=== PATIENT | female | born 1955 | race Caucasian/White ===

== ENCOUNTER 2018-12-10 04:47 | Inpatient (IN) | payer OTHER ==
[2018-12-10] VITALS (17 sets, daily range): BP systolic 105–130; BP diastolic 49–75
[~2018-12-10] VITALS: Ht 160 cm; Wt 68.9 kg
[2018-12-10] MEDS ORDERED: celeBREX 200mg Cap **SURGERY PATIENTS ONLY ORAL ONE (06:00)
[2018-12-10] MEDS ORDERED: Clindamycin 600mg/D5W 50ml IV ONE (06:00)
[2018-12-10] MEDS ORDERED: VYVANSE30 MG ORAL (06:04)
[2018-12-10] MEDS ORDERED: CYMBALTA60 MG ORAL (06:04)
[2018-12-10] MEDS ORDERED: HYDROCHLOROTHIA25 MG ORAL (06:04)
[2018-12-10] MEDS ORDERED: CARTIA XT240 MG ORAL (06:06)
[2018-12-10] MEDS ORDERED: Midazolam 2mg/2ml Inj ONE ×2 (06:39→07:13)
[2018-12-10] MEDS ORDERED: fentaNYL 100 mcg/2 mL IV ONE (06:39)
[2018-12-10] MEDS ORDERED: Tranexamic Acid 1,000 MG in NS 55 ML IV ONE ×2 (06:45→08:30)
[2018-12-10] MEDS ORDERED: Kenalog-40 1ml Vial ONE (06:45)
[2018-12-10] MEDS ORDERED: Bacitracin 50000 Units Vial ONE (06:46)
[2018-12-10] MEDS ORDERED: Ketorolac 30mg Inj ONE (06:46)
[2018-12-10] MEDS ORDERED: Bupivacaine 0.25% Inj 30ml INJ ONE (06:46)
[2018-12-10] MEDS ORDERED: NeoSporin Gu Irrig 1ml Amp IRRIG ONE (06:46)
[2018-12-10] MEDS ORDERED: Clindamycin 600mg 0 ML IV ONE (06:47)
[2018-12-10] MEDS ORDERED: Sterile Water Irrig 1000ml IRRIG ONE (07:00)
[2018-12-10] MEDS ORDERED: NS Irrig 1000ml ONE (07:00)
[2018-12-10] MEDS ORDERED: LR 1000ml ONE (07:00)
[2018-12-10] MEDS ORDERED: Morphine Sulfate PF 10 ML ONE (07:04)
--- NOTE | 2018-12-10 07:06 | Operative Note - PDOC ---
Operative Note Operative Note Pre-op Diagnosis: right knee posttraumactic arthritis Procedure: see op report Post-op Diagnosis: same as pre-op plus Operative Findings: consistent w/pre-op dx studies Anesthesia: regional Specimen: none Complications: none Condition: stable Estimated Blood Loss: none Implant(s) used?: Yes Albino Winkler MD Dec 10, 2018 07:06
--- NOTE | 2018-12-10 07:06 | Pre-Procedure Note/Attestation ---
Pre-Procedure Note/Attestation Complete Prior to Procedure Planned Procedure: right Procedure Narrative: tka Indications for Procedure Pre-Operative Diagnosis: right knee posttraumactic arthritis Attestation I attest that I discussed the nature of the procedure; its benefits; risks and complications; and alternatives (and the risks and benefits of such alternatives ), prior to the procedure, with the patient (or the patient's legal outside dealer sales representative). I attest that, if there was a reasonable possibility of needing a blood transfusion, the patient (or the patient's legal outside dealer sales representative) was given the [facility] standardized written summary, pursuant to the Zach Dillon Blood Safety Act ([place] Health and Safety Code # 1645, as amended). I attest that I re-evaluated the patient just prior to the surgery and that there has been no change in the patient's H&P, except as documented below: Albino Winkler MD Dec 10, 2018 07:06
[2018-12-10] MEDS ORDERED: Milk of Magnesia 30ml Ud ORAL PRN (07:15)
[2018-12-10] MEDS ORDERED: Acetaminophen (Non formulary) 100 ML IV ONE (07:15)
[2018-12-10] MEDS ORDERED: Morphine Sulfate 2mg/ml Inj(IV/IM USE ONLY) IVP PRN (07:15)
[2018-12-10] MEDS ORDERED: Vancomycin 1gm vial IVPB ONE (07:59)
[2018-12-10] MEDS ORDERED: Duramorph PF 5mg/10ml amp ONE (08:18)
[2018-12-10] MEDS ORDERED: Duramorph PF 5mg/10ml amp IV ONE (08:20)
--- NOTE | 2018-12-10 08:21 | Anethesia Preoperative Eval ---
Anesthesia Pre-op PMH/ROS General Date of Evaluation: Dec 10, 2018 Time of Evaluation: 07:00 Anesthesiologist: Mariano ASA Score: ASA 2 Mallampati Score Class I : Soft palate, uvula, fauces, pillars visible Class II: Soft palate, uvula, fauces visible Class III: Soft palate, base of uvula visible Class IV: Only hard plate visible Mallampati Classification: Class II Surgeon: brenda Diagnosis: OA Surgical Procedure: Right Knee arthroplasty Anesthesia History: none Family History: no anesthesia problems Allergies: Coded Allergies: ACETAMINOPHEN (Verified Allergy, Severe, HEADACHE, NAUSEA, 12/09/18) HYDROCODONE (Verified Allergy, Severe, HEADACHE, NAUSEA, 12/09/18) PENICILLINS (Verified Allergy, Severe, HIVES, 12/09/18) MORPHINE (Verified Adverse Reaction, Severe, 12/09/18) "I GET CRAZY" Patient NPO?: Yes NPO Date: Dec 09, 2018 NPO Time: 2100 Past Medical History Cardiovascular: Reports: HTN Pulmonary: Denies: asthma, COPD, LCAIRE, other Gastrointestinal/Genitourinary: Denies: GERD, CRI, ESRD, other Neurologic/Psychiatric: Denies: dementia, CVA, depression/anxiety, TIA, other Endocrine: Denies: DM, hypothyroidism, steroids, other HEENT: Denies: cataract (L), cataract (R), glaucoma, RENO-SPARKS (L), RENO-SPARKS (R), other Hematology/Immune: Denies: anemia, DVT, bleeding disorder, other Musculoskeletal/Integumentary: Reports: OA PSxH Narrative: Rhinoplasty Anesthesia Pre-op Phys. Exam Physician Exam Last Vital Signs Date Time Temp Pulse Resp B/P (MAP) Pulse Ox O2 Delivery O2 Flow Rate FiO2 12/10/18 06:05 98.0 74 20 120/74 (89) 97 12/10/18 05:47 Room Air Constitutional: NAD Neurologic: CN 2-12 intact Cardiovascular: RRR Respiratory: CTA Gastrointestinal: S/NT/ND Airway Exam Mallampati Classification 2 Mallampati Score: Class II MO: full ROM: full Dentures: no upper, no lower Anesthesia Pre-op A/P Labs See HP Studies Pre-op Studies: EKG - SR Risk Assessment & Plan Plan: SAB/Adductor/LMA Pre-Antibiotics Drug: Vanc Given Within 1 Hr of Incision: Yes Time Given: :40 Keyla Laws CRNA Dec 10, 2018 08:21
[2018-12-10] MEDS ORDERED: Metoclopramide 10mg/2ml Inj IVP PRN (08:30)
[2018-12-10] MEDS ORDERED: fentaNYL 100 mcg/2 mL IV PRN (08:30)
[2018-12-10] MEDS ORDERED: DiphenhydrAMINE 50mg/ml Inj IVP PRN (08:30)
[2018-12-10] MEDS ORDERED: Ropivacaine 5mg/ml Vial 30ml INJ ONE (08:56)
[2018-12-10] MEDS ORDERED: Metoclopramide 10mg/2ml Inj ONE (08:56)
[2018-12-10] MEDS ORDERED: Lidocaine 1% MPF 10mg/ml 5ml ONE (08:56)
[2018-12-10] MEDS ORDERED: Propofol 200mg/20ml IV ONE (08:56)
--- NOTE | 2018-12-10 09:58 | Immediate Post-Op Evaluation ---
Immediate Post-Op Evalulation Immediate Post-Op Evalulation Procedure: right total knee arthroplasty Date of Evaluation: Dec 10, 2018 Time of Evaluation: 09:55 IV Fluids: 1500 Blood Products: 0 Estimated Blood Loss: 15 Blood Pressure Systolic: 111 Blood Pressure Diastolic: 54 Pulse Rate: 88 Respiratory Rate: 14 O2 Sat by Pulse Oximetry: 99 Temperature (Fahrenheit): 97.0 Nausea: No Vomiting: No Complications none Patient Status: awake, reacts, patent Hydration Status: adequate Drug: vanc Given Within 1 Hr of Incision: Yes Time Given: 07:40 Keyla Laws CRNA Dec 10, 2018 09:58
--- NOTE | 2018-12-10 11:20 | Diagnostic Imaging Report ---
Indication: Knee pain. Postop Technique: 2 portable views of the right knee Comparison: None Findings: Patient is status post recent total knee arthroplasty. Alignment appears anatomic. No evidence of fracture. No hardware-related complication identified. Foci of gas within the joint space and subcutaneous tissues consistent with postoperative acquisition of the radiograph. Impression: Expected appearance of the knee status post recent total knee arthroplasty. No radiographic evidence of hardware-related complication.
[2018-12-10] MEDS: D5 1/2NS w/KCl 20mEq 1,000 ML IV SCH (13:39)
[2018-12-10] MEDS ORDERED: ceFAZolin sod 2 GM in D5W 110 ML IV SCH (14:00)
[2018-12-10] MEDS: Aspirin Baby 81mg ORAL SCH (18:35)
[2018-12-10] MEDS: Acetaminophen 500mg (ES) tab ORAL SCH (18:36)
[2018-12-10] MEDS: Docusate 100mg cap ORAL SCH (18:36)
[2018-12-10] MEDS: Vancomycin 1 GM in D5W 275 ML IVPB SCH (20:29)
[2018-12-10] MEDS: DULoxetine 30mg cap ORAL SCH (20:36)
[2018-12-10] MEDS: oxyCONTIN 20mg tab ORAL SCH (20:37)
[2018-12-11] VITALS (7 sets, daily range): BP systolic 93–140; BP diastolic 57–70
[2018-12-11] MEDS: Morphine Sulfate 2mg/ml Inj(IV/IM USE ONLY) IVP PRN ×4 (00:56→21:28)
--- NOTE | 2018-12-11 02:00 | Consultation ---
DATE OF CONSULTATION: 12/10/2018 HISTORY OF PRESENT ILLNESS: The patient is an unfortunate female who is scheduled to undergo total knee arthroplasty and was hospitalized. This is a postoperative consult. PAST MEDICAL HISTORY: 1. Attention-deficit hyperactivity disorder. 2. Ulcerative colitis. 3. Hypertension. 4. Fibromyalgia. PAST SURGICAL HISTORY: 1. Knee arthroscopy. 2. Rhinoplasty. 3. Ear surgery. At postop, she has some knee pain. She denies nausea. She denies any vomiting. Denies palpitations. Denies headache. Denies dysuria or frequency. PHYSICAL EXAMINATION: VITAL SIGNS: Vital signs that were obtained on the patient, she is afebrile . HEENT: Normocephalic and atraumatic. Extraocular muscles intact. Anicteric sclerae. NECK: No JVD. No carotid bruits. HEART: S1 and S2. LUNGS: Clear. ABDOMEN: Soft. EXTREMITIES: No clubbing or cyanosis. She is able to bend the knee. Wound is dressed. . Status post right knee surgery. Preoperatively, antibiotic prophylaxis was given and postoperatively DVT prophylaxis at the recommendation of Dr. Winkler. Monitor the patient closely. CBC will be ordered in the morning. Andre Contreras M.D. DR: Jimbo JOB#: [id number] CC:
[2018-12-11] MEDS: D5 1/2NS w/KCl 20mEq 1,000 ML IV SCH ×2 (02:20→18:54)
--- NOTE | 2018-12-11 04:15 | Operative Note - Dictated ---
DATE OF OPERATION: 12/10/2018 PREOPERATIVE DIAGNOSIS: Right knee posttraumatic arthrosis. POSTOPERATIVE DIAGNOSIS: Right knee posttraumatic arthrosis. PROCEDURE: Right total knee arthroplasty. SURGEON: Albino Winkler M.D. ANESTHESIA: Spinal with femoral adductor block. INDICATION FOR PROCEDURE: The patient is a pleasant female who has had worsening knee pain after an accident. She subsequently elected to undergo right total knee arthroplasty. The risks, limitations, expectations, and complications of the procedure discussed in detail. All questions were addressed. Intraoperative Finding:Full thickness chondral damage lateral and medial compartment with chondral flaps. Moderate synovitis suprapatella pouch. DESCRIPTION OF PROCEDURE: After informed consent was obtained, the patient was brought to the operating room. The patient was placed under spinal anesthesia. A Benedict catheter was placed. Vancomycin was administered. Time-out was performed. Right leg was prepped and draped in sterile manner. Anterior skin incision was then made subvastus arthrotomy was performed. Distal femur well visualized. At this point, distal femoral cutting block was then placed. Distal femur was resected. A posterior to anterior sizing guide was performed measured to 5. Size 5 cutting block was placed. It seemed a little bit too wide. Therefore, a size 4 implant was used. The holes were anteriorized by 2 mm and a 4 cutting block was placed. Here it seemed like was going to notch the anterior cortex and size 5 was selected. This was placed. Although it was little wide, it seemed like the posterior to anterior diameter was appropriate. Therefore, the anterior and posterior chamfer cuts were then made. The proximal tibia was well visualized. Proximal tibia was resected. Medial and lateral meniscus removed. Trial components with a size 5 femur, 9 mm insert, 5 mm tibial tray was selected and placed. Knee came out to full extension, good stability to full extension, 10 degrees flexion, and 90 degree flexion. Good tracking of the patella. At this point, the patella was everted, measured 24 mm. A freehand resection was performed. A 31 mm patellar component was selected and placed and we capped 24 mm in diameter. At this point, the cement was prepared. Final implants were impacted into place. Excess cement was removed. The arthrotomy site closed with #1 Vicryl suture, 2-0 Vicryl suture, and 3-0 Monocryl sutures and Steri-Strips. The patient was awakened and taken to recovery room with stable signs. ESTIMATED BLOOD LOSS: None. COMPLICATIONS: None. SPECIMENS: None. IMPLANTS: Include size 5 femoral component, size 5 tibial base plate, 9 mm tibial insert, and a 31 mm patellar component. Albino Winkler M.D. DR: Yuni JOB#: [id number] CC: SOL
[2018-12-11 06:42] LABS: HEMOGLOBIN 10.1 G/DL (12.0-16.0); MEAN CORPUSCULAR VOLUME 94 FL (80-99); PLATELET COUNT 265 K/UL (150-450); RED CELL DISTRIBUTION WIDTH 10.9 % (11.6-14.8); WHITE BLOOD COUNT 17.1 K/UL (4.8-10.8)
[2018-12-11 07:46] LABS: ANION GAP 7 mmol/L (5-15); BLOOD UREA NITROGEN 15 mg/dL (7-18); CARBON DIOXIDE 28 MMOL/L (21-32); CHLORIDE 102 MMOL/L (98-107); CREATININE 0.7 MG/DL (0.55-1.30); POTASSIUM 3.6 MMOL/L (3.5-5.1); SODIUM 137 MMOL/L (136-145)
[2018-12-11] MEDS: dilTIAZem HCl CD 240mg cap ORAL SCH (08:50)
[2018-12-11] MEDS: Vancomycin 1 GM in D5W 275 ML IVPB SCH (08:50)
[2018-12-11] MEDS: Aspirin Baby 81mg ORAL SCH ×2 (08:50→18:34)
[2018-12-11] MEDS: Docusate 100mg cap ORAL SCH ×3 (08:51→18:34)
[2018-12-11] MEDS: celeBREX 200mg Cap **SURGERY PATIENTS ONLY ORAL SCH (08:51)
[2018-12-11] MEDS: Acetaminophen 500mg (ES) tab ORAL SCH ×3 (08:52→18:00)
[2018-12-11] MEDS: oxyCONTIN 20mg tab ORAL SCH ×2 (09:00→20:21)
--- NOTE | 2018-12-11 09:52 | 48 Hour Post Anesthesia Eval ---
Post Anesthesia Evaluation Procedure: right total knee arthroplasty Date of Evaluation: Dec 11, 2018 Time of Evaluation: 09:52 Nausea: No Vomiting: No Manfred Montejo MD Dec 11, 2018 09:52
--- NOTE | 2018-12-11 12:17 | General Progress Note ---
Assessment/Plan Status Narrative S/P KNEE SURGERY PT OT DVT PROPHYALXIS DOING WELL HISTORYO F ADD HOLD THE VYVLEONELE. Subjective Date patient seen: Dec 11, 2018 Allergies: Coded Allergies: ACETAMINOPHEN (Verified Allergy, Severe, HEADACHE, NAUSEA, 12/09/18) HYDROCODONE (Verified Allergy, Severe, HEADACHE, NAUSEA, 12/09/18) PENICILLINS (Verified Allergy, Severe, HIVES, 12/09/18) MORPHINE (Verified Adverse Reaction, Severe, 12/09/18) "I GET CRAZY" Subjective HAS PAIN Objective Last 24 Hour Vital Signs Date Time Temp Pulse Resp B/P (MAP) Pulse Ox O2 Delivery O2 Flow Rate FiO2 12/11/18 09:29 Room Air 12/11/18 08:50 82 127/70 12/11/18 08:46 98.9 82 18 127/70 (89) 96 12/11/18 04:00 97.8 80 18 93/58 (70) 96 12/11/18 00:00 97.6 80 18 114/65 (81) 94 12/10/18 21:00 Room Air 12/10/18 20:00 98.0 82 18 130/74 (92) 96 12/10/18 17:00 Room Air 12/10/18 16:00 97.3 74 18 116/70 (85) 97 12/10/18 14:50 97.7 75 20 108/63 (78) 94 12/10/18 13:50 97.6 75 18 126/75 (92) 95 12/10/18 12:50 97.7 72 20 108/70 (83) 100 12/10/18 12:20 97.0 72 18 106/70 (82) 98 Intake and Output 12/10/18 12/11/18 19:00 07:00 Intake Total 2725 ml 825 ml Output Total 515 ml Balance 2210 ml 825 ml Intake Oral 400 ml IV Total 2325 ml 825 ml Output Urine Total 500 ml Estimated Blood Loss 15 ml Laboratory Tests 12/11/18 05:15: White Blood Count 17.1H, Red Blood Count 3.20L, Hemoglobin 10.1L, Hematocrit 30.0L, Mean Corpuscular Volume 94, Mean Corpuscular Hemoglobin 31.6H, Mean Corpuscular Hemoglobin Concent 33.7, Red Cell Distribution Width 10.9L, Platelet Count 265, Mean Platelet Volume 6.1L, Neutrophils (%) (Auto) , Lymphocytes (%) (Auto) , Monocytes (%) (Auto) , Eosinophils (%) (Auto) , Basophils (%) (Auto) , Differential Total Cells Counted 100, Neutrophils % ( Manual) 83H, Lymphocytes % (Manual) 9L, Monocytes % (Manual) 8, Eosinophils % ( Manual) 0, Basophils % (Manual) 0, Band Neutrophils 0, Platelet Estimate Adequate, Platelet Morphology Normal, Red Blood Cell Morphology Normal, Sodium Level 137, Potassium Level 3.6, Chloride Level 102, Carbon Dioxide Level 28, Anion Gap 7, Blood Urea Nitrogen 15, Creatinine 0.7, Estimat Glomerular Filtration Rate > 60, Glucose Level 134H, Calcium Level 9.0 Height (Feet): 5 Height (Inches): 3.00 Weight (Pounds): 152 General Appearance: WD/WN Neck: non-tender Cardiovascular: normal rate, no JVD Respiratory/Chest: lungs clear Abdomen: soft Andre Contreras MD Dec 11, 2018 12:17
[2018-12-11] MEDS ORDERED: Tubing IV Secondary IV ONE (16:43)
[2018-12-11] MEDS: DULoxetine 30mg cap ORAL SCH (20:20)
[2018-12-11] MEDS: oxyCODONE 5mg IR tab ORAL PRN (23:30)
[2018-12-12] MEDS: Morphine Sulfate 2mg/ml Inj(IV/IM USE ONLY) IVP PRN (01:33)
[2018-12-12 03:55] VITALS: BP 142/81
[2018-12-12] MEDS: D5 1/2NS w/KCl 20mEq 1,000 ML IV SCH (05:00)
[2018-12-12 07:41] LABS: BASOPHILS % (AUTO) 0.2 % (0.0-2.0); HEMATOCRIT 27.9 % (37.0-47.0); HEMOGLOBIN 9.5 G/DL (12.0-16.0); LYMPHOCYTES % (AUTO) 9.2 % (20.0-45.0); MEAN CORPUSCULAR VOLUME 94 FL (80-99); MONOCYTES % (AUTO) 8.7 % (1.0-10.0); NEUTROPHILS % (AUTO) 81.8 % (45.0-75.0); PLATELET COUNT 239 K/UL (150-450); RED BLOOD COUNT 2.96 M/UL (4.20-5.40); RED CELL DISTRIBUTION WIDTH 11.1 % (11.6-14.8); WHITE BLOOD COUNT 13.9 K/UL (4.8-10.8)
[2018-12-12 08:14] VITALS: BP 123/76
[2018-12-12] MEDS: Aspirin Baby 81mg ORAL SCH ×2 (08:16→18:08)
[2018-12-12] MEDS: celeBREX 200mg Cap **SURGERY PATIENTS ONLY ORAL SCH (08:17)
[2018-12-12] MEDS: Docusate 100mg cap ORAL SCH ×3 (08:17→18:08)
[2018-12-12] MEDS: dilTIAZem HCl CD 240mg cap ORAL SCH (08:17)
[2018-12-12] MEDS: Acetaminophen 500mg (ES) tab ORAL SCH ×3 (08:21→18:08)
[2018-12-12] MEDS: oxyCONTIN 20mg tab ORAL SCH ×2 (09:33→22:24)
[2018-12-12 12:00] VITALS: BP 128/71
[2018-12-12 16:00] VITALS: BP 109/58
[2018-12-12 20:00] VITALS: BP 124/72
[2018-12-12] MEDS: DULoxetine 30mg cap ORAL SCH (22:23)
[2018-12-13] VITALS: BP 136/74
[2018-12-13] MEDS: oxyCODONE 5mg IR tab ORAL PRN (00:16)
[2018-12-13 04:00] VITALS: BP 136/76
[2018-12-13 08:00] VITALS: BP 132/78
[2018-12-13 08:15] VITALS: BP 132/78
[2018-12-13] MEDS: Aspirin Baby 81mg ORAL SCH (08:15)
[2018-12-13] MEDS: Docusate 100mg cap ORAL SCH (08:15)
[2018-12-13] MEDS: dilTIAZem HCl CD 240mg cap ORAL SCH (08:15)
[2018-12-13] MEDS: celeBREX 200mg Cap **SURGERY PATIENTS ONLY ORAL SCH (08:16)
[2018-12-13] MEDS: oxyCONTIN 20mg tab ORAL SCH (08:17)
[2018-12-13] MEDS: Acetaminophen 500mg (ES) tab ORAL SCH (08:22)
[2018-12-13 10:10] LABS: BASOPHILS % (AUTO) 0.3 % (0.0-2.0); LYMPHOCYTES % (AUTO) 14.2 % (20.0-45.0); MEAN CORPUSCULAR VOLUME 94 FL (80-99); MONOCYTES % (AUTO) 7.8 % (1.0-10.0); NEUTROPHILS % (AUTO) 77.7 % (45.0-75.0); PLATELET COUNT 299 K/UL (150-450); RED CELL DISTRIBUTION WIDTH 11.2 % (11.6-14.8); WHITE BLOOD COUNT 14.1 K/UL (4.8-10.8)
--- NOTE | 2018-12-15 13:23 | Discharge Summary ---
Discharge Summary Hospital Course Date of Admission Dec 10, 2018 at 11:47 Date of Discharge Dec 13, 2018 at 10:00 Admitting Diagnosis Right knee posttraumatic arthrosis Reason for Hospitalization: Elective surgery HPI Stefany Arellano is a 63 year old female who was admitted on Dec 10, 2018 at 11: 47 for Right Knee Osteoarthritis The patient has had worsening knee pain after an accident. Conservative management was not successful in alleviating of her symptoms. She subsequently elected to undergo right total knee arthroplasty. Consultations Dr Contreras -IM Procedures s/p 12/10/[address] Winkler Right total knee arthroplasty. Hospital Course status post surgery course of recovery uneventful findings during surgery included : full thickness chondral damage lateral and medial compartment with chondral flaps and moderate synovitis suprapatellar pouch. initially IV fluids s/p perioperative antibiotics neurovascular status closely monitored, stable incision with dressing clean , dry, and intact pain management addressed ; pain controlled hemodynamically stable ambulated with PT fall precautions maintained; safe for ambulation DVT prophylaxis provided use of incentive spirometry was encouraged while in the bed tolerated diet , IV fluids discontinued GI prophylaxis provided antiemetics were on board as needed blood pressure was managed with Cardizem and remained stable voided freely bowel regimen instituted patient was stable for discharge discharge instructions provided DME/walker dispensed upon discharge as recommended by PT follow up with surgeon as outpatient as advised by surgeon FINAL DIAGNOSES Right knee posttraumatic arthrosis. s/p Right total knee arthroplasty. Full thickness chondral damage lateral and medial compartment with chondral flaps Moderate synovitis suprapatellar pouch HTN Fibromyalgia Discharge Medications Continued Medications: Diltiazem Hcl* (Cartia Xt*) 240 Mg Cap.er.24h 240 MG ORAL DAILY, CAP (This prescription has been renewed) Duloxetine Hcl* (Cymbalta*) 60 Mg Capsule.dr 120 MG ORAL DAILY, CAP (This prescription has been renewed) Hydrochlorothiazide* (Hydrochlorothiazide*) 25 Mg Tablet 25 MG ORAL DAILY, TAB (This prescription has been renewed) Lisdexamfetamine Dimesylate (Vyvanse) 30 Mg Capsule 90 MG ORAL DAILY, #30 CAP 0 Refills (This prescription has been renewed) Discharge Condition Upon Discharge: stable Discharge Disposition Patient was discharged home Discharge Instructions Discharge Instructions Special Instructions I have been assigned to complete a D/C Summary on this account. I was not involved in the patient management Ciarra Valencia NP Dec 15, 2018 13:23
== END 2018-12-13 10:00 | disposition home or self-care (01) | DRG 470 ==
LOC: SUR 04:47 → 3E 11:47
PROC: 0SRC0J9 Replacement of Right Knee Joint with Synthetic Substitute, Cemented, Open Approach (ICD-10-PCS; principal; 2018-12-10 07:00)
DX: M17.31 Unilateral post-traumatic osteoarthritis, right knee (principal); K51.90 Ulcerative colitis, unspecified, without complications; F90.9 Attention-deficit hyperactivity disorder, unspecified type; M79.7 Fibromyalgia; I10 Essential (primary) hypertension; M65.861 Other synovitis and tenosynovitis, right lower leg
CPT/HCPCS: 36415; 80048; 85007; 85025; 86850; 86900; 86901; 87081; 94003; 94150; J2250; J2405; J2765; S0077